=== PATIENT | female | born 1980 | race Caucasian/White ===

== ENCOUNTER 2023-09-27 12:14 | Outpatient (CLI) | payer BC | END 2023-09-27 12:15 | disposition home or self-care (01) | LOC: BICMAMMO 12:14 | PROVIDERS: ATTEND Family Medicine | DX: Z12.31 Encounter for screening mammogram for malignant neoplasm of breast (principal); Z80.3 Family history of malignant neoplasm of breast; Z98.82 Breast implant status; Z98.890 Other specified postprocedural states | CPT/HCPCS: 77063; 77067 ==